=== PATIENT | male | born 1975 | race Caucasian/White ===

== ENCOUNTER 2022-08-31 15:30 | Outpatient (CLI) | payer OTHER, SELFPAY | END 2022-08-31 15:31 | disposition home or self-care (01) | LOC: LKVREF 15:30 | PROVIDERS: PCP Emergency Medicine; Visit Provider Emergency Medicine | DX: L03.119 Cellulitis of unspecified part of limb (principal) | CPT/HCPCS: 87070 ==

== ENCOUNTER 2022-09-07 15:03 | Outpatient (CLI) | payer OTHER, SELFPAY | END 2022-09-07 15:04 | disposition home or self-care (01) | PROVIDERS: PCP Emergency Medicine; Visit Provider Emergency Medicine | DX: D64.9 Anemia, unspecified (principal); I10 Essential (primary) hypertension; E11.69 Type 2 diabetes mellitus with other specified complication; R00.0 Tachycardia, unspecified; L03.90 Cellulitis, unspecified; E66.9 Obesity, unspecified | CPT/HCPCS: 82728; 84443 ==

== ENCOUNTER 2022-09-21 15:15 | Outpatient (CLI) | payer OTHER, SELFPAY | END 2022-09-21 15:16 | disposition home or self-care (01) | LOC: LKVREF 15:16 | PROVIDERS: PCP Emergency Medicine; Visit Provider Emergency Medicine | DX: D64.9 Anemia, unspecified (principal); I10 Essential (primary) hypertension; E11.69 Type 2 diabetes mellitus with other specified complication; E66.9 Obesity, unspecified; Z13.6 Encounter for screening for cardiovascular disorders | CPT/HCPCS: 80061; 82043; 82570 ==

== ENCOUNTER 2022-11-06 09:58 | Outpatient (CLI) | payer OTHER, SELFPAY | END 2022-11-06 09:59 | disposition home or self-care (01) | LOC: NFLDREF 11-07 10:05 | PROVIDERS: PCP Emergency Medicine; Referring Provider Emergency Medicine; Visit Provider Emergency Medicine | DX: Z13.6 Encounter for screening for cardiovascular disorders (principal) | CPT/HCPCS: 80061 ==

== ENCOUNTER 2022-12-20 15:01 | Outpatient (CLI) | payer OTHER, SELFPAY | END 2022-12-20 15:02 | disposition home or self-care (01) | PROVIDERS: PCP Emergency Medicine; Visit Provider Emergency Medicine | DX: I10 Essential (primary) hypertension (principal); E11.69 Type 2 diabetes mellitus with other specified complication; E66.9 Obesity, unspecified; D64.9 Anemia, unspecified; E11.21 Type 2 diabetes mellitus with diabetic nephropathy | CPT/HCPCS: 80048; 82043; 82570 ==

== ENCOUNTER 2023-03-07 15:53 | Outpatient (CLI) | payer OTHER, SELFPAY | END 2023-03-07 15:54 | disposition home or self-care (01) | LOC: LKVREF 15:54 | PROVIDERS: PCP Emergency Medicine; Visit Provider Emergency Medicine | DX: I10 Essential (primary) hypertension (principal); D64.9 Anemia, unspecified; E11.69 Type 2 diabetes mellitus with other specified complication; E66.9 Obesity, unspecified | CPT/HCPCS: 80053 ==